=== PATIENT | male | born 1985 | race Caucasian/White ===

== ENCOUNTER 2020-01-26 08:05 | Inpatient (IN) | payer OTHER ==
[2020-01-26] MEDS ORDERED: LORazepam 2 MG/ML INJ IV STA ×2 (08:21→09:39)
[2020-01-26] MEDS ORDERED: SODIUM CHLORIDE 0.9% 1,000 ML IV STA ×2 (08:21→10:01)
[2020-01-26] MEDS: SODIUM CHLORIDE 0.9% 1,000 ML IV STA ×2 (08:29→09:58)
--- NOTE | 2020-01-26 08:30 | ED ---
Dizziness HPI - General Chief Complaint: Dizziness Stated Complaint: Tremors Time Seen by Provider: 01/26/20 08:15 Source: patient, RN notes reviewed Mode of arrival: ambulatory Limitations: no limitations - History of Present Illness Initial Comments: This is a 34-year-old male with a history of alcoholism who presents today with complaints of feeling very anxious and dizzy and lightheaded. He states he used to drink every day now he drinks a pint every 3 or 4 days he denies at this time any nausea vomiting diarrhea he does feel shaky he does feel sweaty. He has got through withdrawals before. No cough no phlegm production no rhinorrhea MD Complaint: dizziness, lightheadedness, other - Related Data Home Medications Medication Instructions Recorded Confirmed Aspirin EC [Ecotrin Low Dose] 81 mg PO DAILY 01/26/20 01/26/20 Folic Acid 1 mg PO DAILY 01/26/20 01/26/20 Multivitamins, Thera [Multivitamin 1 tab PO DAILY 01/26/20 01/26/20 (formulary)] QUEtiapine [SEROquel] 25 - 50 mg PO HS PRN 01/26/20 01/26/20 Riboflavin (Vitamin B2) [Vitamin 50 mg PO DAILY 01/26/20 01/26/20 B-2] Sertraline [Zoloft] 100 mg PO DAILY 01/26/20 01/26/20 Thiamine [Vitamin B-1] 100 mg PO DAILY 01/26/20 01/26/20 busPIRone HCl [Buspar] 10 mg PO BID 01/26/20 01/26/20 Allergies Allergy/AdvReac Type Severity Reaction Status Date / Time No Known Allergies Allergy Verified 01/26/20 09:00 Review of Systems ROS Statement: Those systems with pertinent positive or pertinent negative responses have been documented in the HPI. ROS Other: All systems not noted in ROS Statement are negative. Past Medical History Past Medical History: No Reported History History of Any Multi-Drug Resistant Organisms: None Reported Past Surgical History: No Surgical Hx Reported Past Psychological History: Anxiety, Depression Past Alcohol Use History: None Reported Past Drug Use History: None Reported General Exam - General Exam Comments Initial Comments: This is a well-developed well-nourished awake alert oriented times female he does demonstrate some mild shaking Limitations: no limitations General appearance: alert, anxious Head exam: Present: atraumatic, normocephalic, normal inspection Eye exam: Present: normal appearance, PERRL, EOMI. Absent: scleral icterus, conjunctival injection, periorbital swelling ENT exam: Present: normal exam, mucous membranes moist Neck exam: Present: normal inspection, full ROM, other. Absent: tenderness, meningismus, lymphadenopathy Respiratory exam: Present: normal lung sounds bilaterally. Absent: respiratory distress, wheezes, rales, rhonchi, stridor Cardiovascular Exam: Present: normal rhythm, tachycardia (No stridor JVD or bruits), normal heart sounds. Absent: systolic murmur, diastolic murmur, rubs, gallop, clicks GI/Abdominal exam: Present: soft, normal bowel sounds. Absent: distended, tenderness, guarding, rebound, rigid Extremities exam: Present: normal inspection, full ROM, normal capillary refill. Absent: tenderness, pedal edema, joint swelling, calf tenderness Back exam: Present: normal inspection Neurological exam: Present: alert, oriented X3, CN II-XII intact Psychiatric exam: Present: normal affect, normal mood Skin exam: Present: warm, intact, normal color, diaphoretic. Absent: rash Course Vital Signs 01/26/20 01/26/20 01/26/20 08:06 08:17 08:42 Temperature 98.9 F 100.3 F H 100.0 F H Pulse Rate 180 H 163 H 147 H Respiratory 26 H 18 14 Rate Blood Pressure 173/96 194/122 126/91 O2 Sat by Pulse 97 99 99 Oximetry 01/26/20 09:05 Temperature Pulse Rate 142 H Respiratory 16 Rate Blood Pressure 112/95 O2 Sat by Pulse 95 Oximetry - Reevaluation(s) Reevaluation #1: 01/26/20 09:54 Patient is feeling improved after initial treatment. Heart rate has improved down to the 130s. EKG Findings - EKG Results: EKG: interpreted by ERMD, sinus rhythm EKG shows: tachycardia (Sinus tachycardia rate of 164. Interval 160 QRS duration 74 QT/QTC 304/[address] configuration abnormality likely rate related) Medical Decision Making - Medical Decision Making I did discuss findings with the patient family. Also with Dr. Sneed and patient will be admitted for further evaluation and suspected alcohol withdrawal in addition to left-sided imbalances. - Lab Data Result diagrams: 01/26/20 08:34 01/26/20 08:34 Lab Results 01/26/20 01/26/20 01/26/20 Range/Units 08:34 08:34 08:34 WBC 7.6 (3.8-10.6) k/uL RBC 4.59 (4.30-5.90) m/uL Hgb 15.8 (13.0-17.5) gm/dL Hct 48.7 (39.0-53.0) % MCV 106.1 H (80.0-100.0) fL MCH 34.5 (25.0-35.0) pg MCHC 32.5 (31.0-37.0) g/dL RDW 13.1 (11.5-15.5) % Plt Count 148 L (150-450) k/uL Neutrophils % 37 % Lymphocytes % 50 % Monocytes % 7 % Eosinophils % 1 % Basophils % 1 % Neutrophils # 2.8 (1.3-7.7) k/uL Lymphocytes # 3.8 (1.0-4.8) k/uL Monocytes # 0.5 (0-1.0) k/uL Eosinophils # 0.1 (0-0.7) k/uL Basophils # 0.1 (0-0.2) k/uL Macrocytosis Moderate PT 10.7 (9.0-12.0) sec INR 1.0 (<1.2) D-Dimer 0.67 H (<0.60) mg/L FEU Sodium 137 (137-145) mmol/L Potassium 3.1 L (3.5-5.1) mmol/L Chloride 93 L (98-107) mmol/L Carbon Dioxide 12 L (22-30) mmol/L Anion Gap 32 mmol/L BUN 7 L (9-20) mg/dL Creatinine 1.35 H (0.66-1.25) mg/dL Est GFR (CKD-EPI)AfAm 78 (>60 ml/min/1.73 sqM) Est GFR (CKD-EPI)NonAf 68 (>60 ml/min/1.73 sqM) Glucose 294 H (74-99) mg/dL Calcium 9.7 (8.4-10.2) mg/dL Magnesium 1.1 L (1.6-2.3) mg/dL Total Bilirubin 2.0 H (0.2-1.3) mg/dL AST 144 H (17-59) U/L ALT 61 H (4-49) U/L Alkaline Phosphatase 67 (38-126) U/L Creatine Kinase 140 (55-170) U/L Troponin I (0.000-0.034) ng/mL NT-Pro-B Natriuret Pep pg/mL Total Protein 8.8 H (6.3-8.2) g/dL Albumin 5.5 H (3.5-5.0) g/dL TSH 2.760 (0.465-4.680) mIU/L Serum Alcohol <10 mg/dL 01/26/20 01/26/20 Range/Units 08:34 08:34 WBC (3.8-10.6) k/uL RBC (4.30-5.90) m/uL Hgb (13.0-17.5) gm/dL Hct (39.0-53.0) % MCV (80.0-100.0) fL MCH (25.0-35.0) pg MCHC (31.0-37.0) g/dL RDW (11.5-15.5) % Plt Count (150-450) k/uL Neutrophils % % Lymphocytes % % Monocytes % % Eosinophils % % Basophils % % Neutrophils # (1.3-7.7) k/uL Lymphocytes # (1.0-4.8) k/uL Monocytes # (0-1.0) k/uL Eosinophils # (0-0.7) k/uL Basophils # (0-0.2) k/uL Macrocytosis PT (9.0-12.0) sec INR (<1.2) D-Dimer (<0.60) mg/L FEU Sodium (137-145) mmol/L Potassium (3.5-5.1) mmol/L Chloride (98-107) mmol/L Carbon Dioxide (22-30) mmol/L Anion Gap mmol/L BUN (9-20) mg/dL Creatinine (0.66-1.25) mg/dL Est GFR (CKD-EPI)AfAm (>60 ml/min/1.73 sqM) Est GFR (CKD-EPI)NonAf (>60 ml/min/1.73 sqM) Glucose (74-99) mg/dL Calcium (8.4-10.2) mg/dL Magnesium (1.6-2.3) mg/dL Total Bilirubin (0.2-1.3) mg/dL AST (17-59) U/L ALT (4-49) U/L Alkaline Phosphatase (38-126) U/L Creatine Kinase (55-170) U/L Troponin I <0.012 (0.000-0.034) ng/mL NT-Pro-B Natriuret Pep 359 pg/mL Total Protein (6.3-8.2) g/dL Albumin (3.5-5.0) g/dL TSH (0.465-4.680) mIU/L Serum Alcohol mg/dL - Radiology Data Radiology results: report reviewed (I did review the imaging and report no acute findings.), image reviewed Disposition Clinical Impression: Alcohol withdrawal, Hypokalemia, Hypomagnesemia, Dehydration, Hyperglycemia Disposition: ADMITTED IP TO THIS [facility] Condition: Fair Referrals: None,Stated [Primary Care Provider] - 1-2 days
[2020-01-26 08:46] LABS: Basophils # (A) 0.1 k/uL (0-0.2); Basophils % (A) 1 %; Eosinophils # (A) 0.1 k/uL (0-0.7); Eosinophils % (A) 1 %; HCT 48.7 % (39.0-53.0); HGB 15.8 gm/dL (13.0-17.5); Lymphocytes # (A) 3.8 k/uL (1.0-4.8); Lymphocytes % (A) 50 %; MCH 34.5 pg (25.0-35.0); MCHC 32.5 g/dL (31.0-37.0); MCV 106.1 fL (80.0-100.0); Macrocytosis Moderate; Mean Platelet Volume 9.2; Monocytes # (A) 0.5 k/uL (0-1.0); Monocytes % (A) 7 %; Neutrophils # (A) 2.8 k/uL (1.3-7.7); Neutrophils % (A) 37 %; Platelet Count 148 k/uL (150-450); RBC 4.59 m/uL (4.30-5.90); RDW 13.1 % (11.5-15.5); WBC 7.6 k/uL (3.8-10.6)
--- NOTE | 2020-01-26 08:56 | XR ---
EXAMINATION TYPE: XR chest 2V DATE OF EXAM: 01/26/2020 COMPARISON: NONE HISTORY: Elevated heart rate. Anxiety. TECHNIQUE: Frontal and lateral views of the chest are obtained. FINDINGS: Low lung volumes. There is no suspicious focal air space opacity, pleural effusion, or pneu mothorax seen. The cardiac silhouette size is within normal limits. The osseous structures are int act. Overlying EKG leads. IMPRESSION: No acute cardiopulmonary process.
[2020-01-26 08:59] LABS: Prothrombin Time 10.7 sec (9.0-12.0)
[2020-01-26 09:00] LABS: African American GFR (CKD) 78 (>60 ml/min/1.73 sqM); Albumin 5.5 g/dL (3.5-5.0); Alcohol <10 mg/dL; Alkaline Phosphatase 67 U/L (38-126); Anion Gap 32 mmol/L; Blood Urea Nitrogen 7 mg/dL (9-20); Calcium 9.7 mg/dL (8.4-10.2); Carbon Dioxide 12 mmol/L (22-30); Chloride 93 mmol/L (98-107); Creatine Kinase 140 U/L (55-170); Glucose 294 mg/dL (74-99); Magnesium 1.1 mg/dL (1.6-2.3); Non-African American GFR(CKD) 68 (>60 ml/min/1.73 sqM); Potassium 3.1 mmol/L (3.5-5.1); Sodium 137 mmol/L (137-145); Total Protein 8.8 g/dL (6.3-8.2)
[2020-01-26 09:05] LABS: AST 144 U/L (17-59)
[2020-01-26 09:07] LABS: ALT 61 U/L (4-49)
[2020-01-26 09:09] LABS: D-Dimer 0.67 mg/L FEU (<0.60)
[2020-01-26] MEDS ORDERED: IBUPROFEN 400 MG TAB PO PRN (09:57)
[2020-01-26] MEDS ORDERED: NALOXONE 0.4 MG/ML 1 ML VIAL IV PRN (09:57)
[2020-01-26] MEDS: MAGNESIUM SULFATE-D5W PMX 1 GM in DEXTROSE/WATER 1 100ML.BAG IVPB SCH ×2 (09:58→12:13)
[2020-01-26] MEDS ORDERED: THIAMINE 100 MG/ML 2 ML VIAL IM STA (09:59)
[2020-01-26] MEDS ORDERED: LORazepam 2 MG/ML INJ IV PRN ×3 (09:59)
[2020-01-26] MEDS ORDERED: SODIUM CHLORIDE 0.9% 500 ML 500 ML IV ONE (10:22)
[2020-01-26] MEDS ORDERED: 0.9% NACL WITH KCL 20 MEQ/L 1,000 ML IV SCH (10:30)
[2020-01-26 10:34] LABS: Amphetamine Screen,Urine Not Detected (NotDetected); Barbiturate Screen,Urine Not Detected (NotDetected); Benzodiazepines Screen,Urine Detected (NotDetected); Cocaine Screen,Urine Not Detected (NotDetected); Methadone Screen, Urine Not Detected (NotDetected); Opiate Screen,Urine Not Detected (NotDetected); Oxycodone Screen, Urine Not Detected (NotDetected); Phencyclidine Screen,Urine Not Detected (NotDetected); Tricyclic Antidepressant,Urine Detected (NotDetected); Urn Cannabinoid Scrn Not Detected (NotDetected)
[2020-01-26] MEDS: diazePAM 5 MG TAB PO SCH ×3 (10:36→23:16)
[2020-01-26] MEDS: PANTOPRAZOLE 40 MG TABLET PO SCH (10:36)
--- NOTE | 2020-01-26 13:28 | P.HPIM ---
History of Present Illness H&P Date: 01/26/20 Chief Complaint: Worsening anxiety This is a 34-year-old male with past medical history significant for underlying depression, anxiety, and alcohol abuse who presented to the emergency room with worsening anxiety and shakiness. Patient said that he usually drinks half pint of vodka every every 3 days. He used to drink daily but has been cutting down for the past several months. He noted this morning that he was having more shakiness and appeared very anxious sister to go to the emergency room. Patient was evaluated in the ER and was found to have significant hypomagnesemia and hypokalemia. He was having withdrawal symptoms and was treated with IV Ativan. He is currently admitted to the hospital for further management. Patient told nursing staff prior to my evaluation that he wished he could be by now. He told the nurse that he would prefer to go to sleep and not to wake up. Upon my evaluation, patient denies any suicidal thoughts or ideation. He believes that he is anxious. He denies any visual or audible hallucination. Review of Systems Review of system: 14 points review of systems were obtained and were negative except to what were mentioned in the HPI. Past Medical History Past Medical History: No Reported History History of Any Multi-Drug Resistant Organisms: None Reported Past Surgical History: Adenoidectomy Past Anesthesia/Blood Transfusion Reactions: No Reported Reaction Past Psychological History: Anxiety, Depression Smoking Status: Never smoker Past Alcohol Use History: Abuse, Daily, Heavy Past Drug Use History: None Reported - Past Family History Father Family Medical History: Cancer Additional Family Medical History / Comment(s): from lung cancer Mother Family Medical History: Thyroid Disorder Additional Family Medical History / Comment(s): Autoimmune liver cirrhosis Medications and Allergies Home Medications Medication Instructions Recorded Confirmed Type Aspirin EC [Ecotrin Low Dose] 81 mg PO DAILY 01/26/20 01/26/20 History Multivitamins, Thera [Multivitamin 1 tab PO DAILY 01/26/20 01/26/20 History (formulary)] QUEtiapine [SEROquel] 25 - 50 mg PO HS PRN 01/26/20 01/26/20 History RX: Folic Acid 1 mg PO DAILY 01/26/20 01/26/20 History Riboflavin (Vitamin B2) [Vitamin 50 mg PO DAILY 01/26/20 01/26/20 History B-2] Sertraline [Zoloft] 100 mg PO DAILY 01/26/20 01/26/20 History Thiamine [Vitamin B-1] 100 mg PO DAILY 01/26/20 01/26/20 History busPIRone HCl [Buspar] 10 mg PO BID 01/26/20 01/26/20 History Allergies Allergy/AdvReac Type Severity Reaction Status Date / Time No Known Allergies Allergy Verified 01/26/20 09:00 Physical Exam Vitals: Vital Signs Temp Pulse Pulse Resp BP BP Pulse Ox 01/26/20 11:10 98.8 F 114 H 16 110/67 97 01/26/20 10:47 99.1 F 115 H 14 104/78 96 01/26/20 10:02 99.1 F 129 H 14 113/79 95 01/26/20 09:05 142 H 16 112/95 95 01/26/20 08:42 100.0 F H 147 H 14 126/91 99 01/26/20 08:17 100.3 F H 163 H 18 194/122 99 01/26/20 08:06 98.9 F 180 H 26 H 173/96 97 Intake and Output 01/25/20 01/26/20 01/26/20 22:59 06:59 14:59 Other: Weight 86.183 kg General: The patient is awake and alert, in no distress Eye: there is normal conjunctiva bilaterally. Neck: The neck is supple, there is no JVD. Cardiovascular: Normal S1-S2, no S3-S4, no murmurs. Respiratory: Lungs clear to auscultation bilaterally Gastrointestinal: Abdomen is soft, nontender Musculoskeletal: There is no pedal edema. Neurological:. Speech is normal. Skin: Skin is warm and dry Results CBC & Chem 7: 01/26/20 08:34 01/26/20 08:34 Labs: Abnormal Lab Results - Last 24 Hours (Table) 01/26/20 01/26/20 01/26/20 Range/Units 08:34 08:34 08:34 MCV 106.1 H (80.0-100.0) fL Plt Count 148 L (150-450) k/uL D-Dimer 0.67 H (<0.60) mg/L FEU Potassium (3.5-5.1) mmol/L Chloride (98-107) mmol/L Carbon Dioxide (22-30) mmol/L BUN (9-20) mg/dL Creatinine (0.66-1.25) mg/dL Glucose (74-99) mg/dL Magnesium (1.6-2.3) mg/dL Total Bilirubin (0.2-1.3) mg/dL AST (17-59) U/L ALT (4-49) U/L Total Protein (6.3-8.2) g/dL Albumin (3.5-5.0) g/dL U Tricyclic Antidepress Detected H (NotDetected) U Benzodiazepines Scrn Detected H (NotDetected) 01/26/20 Range/Units 08:34 MCV (80.0-100.0) fL Plt Count (150-450) k/uL D-Dimer (<0.60) mg/L FEU Potassium 3.1 L (3.5-5.1) mmol/L Chloride 93 L (98-107) mmol/L Carbon Dioxide 12 L (22-30) mmol/L BUN 7 L (9-20) mg/dL Creatinine 1.35 H (0.66-1.25) mg/dL Glucose 294 H (74-99) mg/dL Magnesium 1.1 L (1.6-2.3) mg/dL Total Bilirubin 2.0 H (0.2-1.3) mg/dL AST 144 H (17-59) U/L ALT 61 H (4-49) U/L Total Protein 8.8 H (6.3-8.2) g/dL Albumin 5.5 H (3.5-5.0) g/dL U Tricyclic Antidepress (NotDetected) U Benzodiazepines Scrn (NotDetected) Thrombosis Risk Factor Assmnt - Choose All That Apply Any of the Below Risk Factors Present?: No Other Risk Factors: No Other congenital or acquired thrombophilia - If yes, enter type in comment: No Thrombosis Risk Factor Assessment Level: Very Low Risk Assessment and Plan Assessment: 1. Alcohol withdrawal, I started the patient on Valium 10 mg 3 times a day. Continue IV Ativan as needed per [facility] protocol. Multivitamins and thiamine. 2. Hypokalemia and hypomagnesemia, replacement ordered. Repeat lab work in the morning. 3. Dehydration, with sinus tachycardia on presentation: Received 1.5 L of home a saline as a bolus in the ER. Continue IV fluids 4. Underlying depression/anxiety with suicidal thoughts on presentation: Continue suicide precautions. To that at bedside. Consult psychiatry for further evaluation. 5. DVT prophylaxis with subcu heparin 6. GI prophylaxis with Protonix The patient is admitted with an anticipated greater than 2 midnight stay for evaluation of the medical problems noted above Discussed with: Patient and nursing staff Anticipated discharge date: To be determined based on clinical course Anticipated discharge place: home A total of 45 minutes was spent on the care of this complex patient more than 50% of the time was spent in counseling and care coordination.
[2020-01-26] MEDS: 0.9% NACL WITH KCL 20 MEQ/L 1,000 ML with MVI, ADULT NO.4 WITH VIT K 10 ML, THIAMINE 10... IV SCH ×4 (14:23)
--- NOTE | 2020-01-26 14:55 | P.CN ---
Psychiatric Consult - . Consult date: 01/26/20 Consult:: IDENTIFYING DATA: This patient is a 34-year-old male with significant history of alcohol use who presented to the emergency Department with anxiety and shakiness. HISTORY OF PRESENT ILLNESS: Patient's mother Ashlyn is present in the room. Patient is agreeable to have her present during the psychiatric evaluation. The patient presented to the hospital on 01/26/2020. Patient reports that he was about to depart on a trip to [place] to unwind as a "singles trip" as his divorce is being finalized over the next 30 days. He expresses that he was having increased anxiety and shakiness last night. He states that he has taken some Seroquel to help him sleep and was able to sleep. He reports that before he could go to the airport his anxiety was increasingly worse and his hands were locking up. He was then brought to the emergency department by his sister. Patient reports that he has always had problems with anxiety and worry. He states that this has been occurring since 9 years ago after his father . In regards to mood, patient expresses that he has been feeling "a little down" over the past few months. He endorses symptoms of depression including lack of appetite, anhedonia, isolation, and low mood. He reports passive thoughts of but denies any active suicidal or homicidal ideation, intention, and/or plan. He denies any prior attempts at suicide. 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 He was discharged from rehab on November 20 and relapsed into alcohol use after. He reports his last drink was 4 days ago. Along with alcohol, he also engages in significant tobacco use using approximately a can per day of chew. He does not endorse any significant history of bipolar disorder. He denies any history of auditory hallucinations. He reports having one episode of visual hallucination in the past while he was intoxicated. He denies any history of illicit drug use. He reports experimenting with marijuana but denies any recent or current use. PAST PSYCHIATRIC HISTORY: Patient has a a history of anxiety, depression, and alcohol use disorder. And he recalls being previously prescribed Lexapro, Zoloft, BuSpar, and Seroquel. Patient denies any previous psychiatric hospitalizations. He is currently open to outpatient therapy services through [facility]. Patient denies any history of suicide attempts in the past. PAST MEDICAL HISTORY: No reported past medical history. ALLERGIES: as per EMR. CHEMICAL DEPENDENCY HISTORY: as per HPI. FAMILY PSYCHIATRIC/SUBSTANCE USE HISTORY: 2 aunts with depression and anxiety. SOCIAL HISTORY: Patient was born in [place]. Patient lives in [place]. He is currently staying with 2 of his sisters. 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 Currently in the process of divorce. MENTAL STATUS EXAM: General Appearance: Patient appears to be stated age is alert, pleasant, and cooperative. Patient appears to have fair hygiene and grooming wearing hospital gown with fair eye contact. Behavior: Patient is calmly lying in bed without any agitated behavior. Mild psychomotor retardation. Poor eye contact. Speech: Patient's speech is fluent and nonpressured. Mood/Affect: Patient reports their mood is "kind of low", affect is sad and blunted Suicidality/Homicidality: Patient denies having any suicidal or homicidal ideation intent or plan. Perceptions: Patient denies any visual hallucinations and denies any auditory hallucinations Though content/process: There is no evidence of any delusional thought content and thought process is linear and goal-directed. Memory and concentration: AOX3, grossly intact for the purposes of this session. Can spell "WORLD" backwards Judgment and insight: Fair IMPRESSIONS: Major depressive disorder, recurrent Generalized anxiety disorder Alcohol use disorder PLAN: -At this time patient DOES NOT meet criteria for inpatient psychiatric admission. -Would recommend the following medication changes/additions: Discontinue Seroquel. Start Remeron 15 mg by mouth at bedtime for depression/lack of appetite/anxiety -Recommend setting up patient with outpatient psychiatry follow-up -Patient has elevated liver enzymes. Consider the use of naltrexone if liver enzymes returned to normal. -Discontinue 1:1 -Psychiatry will sign off at this point, please contact with any questions. 01/26/20 14:43
[2020-01-26 17:05] LABS: Hemoglobin A1C 4.7 % (4.0-6.0)
[2020-01-26] MEDS: THIAMINE 100 MG TAB PO SCH (17:26)
[2020-01-26] MEDS: HEPARIN SODIUM,PORCINE 5,000 UNIT/ML 1 ML VIAL SQ SCH (20:09)
[2020-01-26] MEDS: busPIRone HCl 10 MG TAB PO SCH (20:18)
[2020-01-26] MEDS: MIRTAZAPINE 15 MG TAB PO SCH (20:18)
[2020-01-26] MEDS ORDERED: QUEtiapine 25 MG TAB PO PRN (21:00)
[2020-01-27] MEDS: 0.9% NACL WITH KCL 20 MEQ/L 1,000 ML with MVI, ADULT NO.4 WITH VIT K 10 ML, THIAMINE 10... IV SCH ×4 (06:37)
[2020-01-27] MEDS: PANTOPRAZOLE 40 MG TABLET PO SCH (06:38)
[2020-01-27] MEDS: THIAMINE 100 MG TAB PO SCH ×2 (06:38→16:37)
[2020-01-27 07:22] LABS: African American GFR (CKD) >90 (>60 ml/min/1.73 sqM); Anion Gap 6 mmol/L; Blood Urea Nitrogen 8 mg/dL (9-20); Calcium 8.5 mg/dL (8.4-10.2); Carbon Dioxide 27 mmol/L (22-30); Chloride 107 mmol/L (98-107); Glucose 83 mg/dL (74-99); Magnesium 1.6 mg/dL (1.6-2.3); Non-African American GFR(CKD) >90 (>60 ml/min/1.73 sqM); Potassium 3.3 mmol/L (3.5-5.1); Sodium 140 mmol/L (137-145)
[2020-01-27] MEDS ORDERED: POTASSIUM CHLORIDE 20 MEQ in WATER FOR INJECTION 1 100ML.BAG IVPB STA (07:55)
[2020-01-27] MEDS ORDERED: POTASSIUM CHLORIDE ER 20 MEQ TAB.ER PO STA (07:55)
[2020-01-27] MEDS: busPIRone HCl 10 MG TAB PO SCH ×2 (08:22→19:45)
[2020-01-27] MEDS: diazePAM 5 MG TAB PO SCH ×3 (08:22→19:45)
[2020-01-27] MEDS: SERTRALINE 100 MG TAB PO SCH (08:22)
[2020-01-27] MEDS: ASPIRIN 81 MG PO SCH (08:22)
[2020-01-27] MEDS: HEPARIN SODIUM,PORCINE 5,000 UNIT/ML 1 ML VIAL SQ SCH ×2 (08:23→19:45)
[2020-01-27] MEDS: NICOTINE 14MG/24HR PATCH TRANSDERM SCH (08:23)
[2020-01-27] MEDS: MAGNESIUM SULFATE-D5W PMX 1 GM in DEXTROSE/WATER 1 100ML.BAG IVPB SCH ×2 (08:29→10:02)
[2020-01-27] MEDS ORDERED: NALTREXONE HCL 50 MG TAB PO SCH (09:00)
[2020-01-27] MEDS ORDERED: SODIUM CHLORIDE 0.9% 1,000 ML IV ONE (10:14)
[2020-01-27 11:50] LABS: Glucose,Whole Blood 92 mg/dL (75-99)
--- NOTE | 2020-01-27 12:44 | P.PN ---
Subjective Progress Note Date: 01/27/20 Patient is doing better today. He does not have any complaints this morning. His magnesium and potassium level remained on the lower range. His tachycardia improved at rest that he is still tachycardic when he get up and ambulate. He did not require any IV Ativan overnight Objective - Vital Signs Vital signs: Vital Signs Temp 98.2 F 01/27/20 12:00 Pulse 87 01/27/20 12:00 Resp 18 01/27/20 12:00 BP 140/98 01/27/20 12:00 Pulse Ox 99 01/27/20 12:00 Intake & Output 01/26/20 01/27/20 01/27/20 18:59 06:59 18:59 Intake Total 100 360 Balance 100 360 Weight 86.183 kg 84 kg Intake: Oral 100 360 Other: Voiding Method Toilet Toilet # Voids 0 1 3 # Bowel Movements 0 1 - Exam General: The patient is awake and alert, in no distress Eye: there is normal conjunctiva bilaterally. Neck: The neck is supple, there is no JVD. Cardiovascular: Normal S1-S2, no S3-S4, no murmurs. Respiratory: Lungs clear to auscultation bilaterally Gastrointestinal: Abdomen is soft, nontender Musculoskeletal: There is no pedal edema. Neurological:. Speech is normal. Skin: Skin is warm and dry - Labs CBC & Chem 7: 01/26/20 08:34 01/27/20 06:34 Labs: Abnormal Lab Results - Last 24 Hours (Table) 01/27/20 Range/Units 06:34 Potassium 3.3 L (3.5-5.1) mmol/L BUN 8 L (9-20) mg/dL Microbiology - Last 24 Hours (Table) 01/26/20 08:34 Blood Culture - Preliminary Blood No Growth after 24 hours Assessment and Plan Assessment: This is a 34-year-old male with past medical history noted below who presented to the emergency room with worsening anxiety and shakiness. Patient was evaluated and admitted to the hospital for further management of his medical problems noted below. 1. Alcohol withdrawal, I started the patient on Valium 10 mg 3 times a day and we will decrease the dose to 5 mg 3 times a day today Continue IV Ativan as needed per [facility] protocol. Multivitamins and thiamine. 2. Hypokalemia and hypomagnesemia, replacement ordered. Repeat lab work in the morning. 3. Dehydration, with sinus tachycardia on presentation: Received 1.5 L of home a saline as a bolus in the ER. We will give him additional 1 L bolus today given persistent tachycardia with ambulation 4. Underlying depression/anxiety with suicidal thoughts on presentation: Seen and evaluated by psychiatry. Bedside sitter discontinued. Seroquel was discontinued. I would clarify with our psychiatrist if he wanted patient to be on BuSpar, Zoloft, and Remeron altogether. 5. Alcohol abuse, counseled extensively to quit. 6. GI prophylaxis with Protonix. DVT prophylaxis with subcu heparin Repeat lab work in the morning. Anticipate discharge home tomorrow.
--- NOTE | 2020-01-27 13:56 | P.PN ---
Progress Note - Text Progress Note Date: 01/27/20 IDENTIFYING DATA: This patient is a 34-year-old male with significant history of alcohol use who presented to the emergency Department with anxiety and shakiness. SUBJECTIVE: Patient was that he is feeling "better today." He is not endorsing any suicidal or homicidal ideation, intention, and/or plan. He is not reporting any significant issues with anxiety. He denies any panic episodes or increased shakiness. He is not endorsing any symptoms of alcohol withdrawal at this time. Denies any headache, tremors, or any auditory or visual hallucinations. He reports no side effects of his medications. Denies any issues with sleep or appetite today. OBJECTIVE: MENTAL STATUS EXAM: General Appearance: Patient appears to be stated age is alert, pleasant, and cooperative. Patient appears to have fair hygiene and grooming wearing hospital gown with fair eye contact. Behavior: Patient is calmly lying in bed without any agitated behavior. Speech: Patient's speech is fluent and nonpressured. Mood/Affect: Patient reports their mood is "okay", affect is congruent and euthymic Suicidality/Homicidality: Patient denies having any suicidal or homicidal ideation intent or plan. Perceptions: Patient denies any visual hallucinations and denies any auditory hallucinations Though content/process: There is no evidence of any delusional thought content and thought process is linear and goal-directed. Memory and concentration: AOX3, grossly intact for the purposes of this session. Can spell "WORLD" backwards Judgment and insight: Fair IMPRESSIONS: Major depressive disorder, recurrent Generalized anxiety disorder Alcohol use disorder PLAN: -At this time patient DOES NOT meet criteria for inpatient psychiatric admission. -Delirium precautions recommended with patient including - avoiding use of narcotics and [place] sedatives, limit anticholinergic medications when possible, frequent re-orientation, minimize use of restraints, open window shades during the day and close them at night -Would recommend the following medication changes/additions: Continue Remeron 15 mg by mouth at bedtime for insomnia/anxiety/depression. No other medication changes at this time. -Recommend outpatient psychotherapy and psychiatry follow-up. -Psychiatry will sign off at this point, please contact with any questions.
[2020-01-27 14:03] VITALS: BMI 28.1
[2020-01-27] MEDS: MIRTAZAPINE 15 MG TAB PO SCH (19:45)
[2020-01-28] MEDS: PANTOPRAZOLE 40 MG TABLET PO SCH (06:14)
[2020-01-28] MEDS: THIAMINE 100 MG TAB PO SCH (06:14)
[2020-01-28 07:56] VITALS: BP 154/105; PULSE 93; RESP 13; TEMP 98.4
[2020-01-28] MEDS: HEPARIN SODIUM,PORCINE 5,000 UNIT/ML 1 ML VIAL SQ SCH (09:15)
[2020-01-28] MEDS: NICOTINE 14MG/24HR PATCH TRANSDERM SCH (09:15)
[2020-01-28] MEDS: SERTRALINE 100 MG TAB PO SCH (09:16)
[2020-01-28] MEDS: ASPIRIN 81 MG PO SCH (09:16)
[2020-01-28] MEDS: busPIRone HCl 10 MG TAB PO SCH (09:16)
[2020-01-28 09:27] LABS: ALT 79 U/L (4-49); AST 96 U/L (17-59); African American GFR (CKD) >90 (>60 ml/min/1.73 sqM); Albumin 4.5 g/dL (3.5-5.0); Alkaline Phosphatase 57 U/L (38-126); Anion Gap 6 mmol/L; Blood Urea Nitrogen 10 mg/dL (9-20); Calcium 9.3 mg/dL (8.4-10.2); Carbon Dioxide 27 mmol/L (22-30); Chloride 104 mmol/L (98-107); Glucose 72 mg/dL (74-99); Magnesium 1.7 mg/dL (1.6-2.3); Non-African American GFR(CKD) >90 (>60 ml/min/1.73 sqM); Potassium 3.8 mmol/L (3.5-5.1); Sodium 137 mmol/L (137-145); Total Bilirubin 0.8 mg/dL (0.2-1.3); Total Protein 7.3 g/dL (6.3-8.2)
--- NOTE | 2020-01-28 09:39 | P.DS ---
Providers Date of admission: 01/26/20 09:57 Expected date of discharge: 01/28/20 Attending physician: Donnell Sneed Consults: 01/26/20 13:02 Consult Physician Urgent Consulting Provider: Hamilton Tinoco Consult Reason/Comments: depression/suicide precautions Do you want consulting provider notified?: Yes Primary care physician: Stated None Hospital Course: This is a 34-year-old male with past medical history noted below who presented to the emergency room with worsening anxiety and shakiness. Patient was evaluated and admitted to the hospital for further management of his medical problems noted below. 1. Alcohol withdrawal, treated with oral Valium and as needed CIWA protocol. Multivitamins and thiamine. 2. Hypokalemia and hypomagnesemia, replaced 3. Dehydration, improved with aggressive IV fluid hydration 4. Underlying depression/anxiety with suicidal thoughts on presentation: Seen and evaluated by psychiatry. Bedside sitter discontinued. Seroquel was discontinued. Cleared by psychiatry for discharge home. Follow-up with counseling outpatient. Remeron added to his regimen. 5. Alcohol abuse, counseled extensively to quit. Patient will be discharged home in a stable condition. For further details about this hospitalization please refer to the electronic chart. Time spent on discharge > 30 minutes including counseling and coordination of Patient Condition at Discharge: Fair Plan - Discharge Summary Discharge Rx Participant: No New Discharge Prescriptions: New Nicotine 14Mg/24Hr Patch [Habitrol] 1 patch TRANSDERM DAILY #30 patch Magnesium Oxide [Mag-Ox] 400 mg PO DAILY #30 tablet Mirtazapine [Remeron] 15 mg PO HS #30 tab Continue Multivitamins, Thera [Multivitamin (formulary)] 1 tab PO DAILY Folic Acid 1 mg PO DAILY Aspirin EC [Ecotrin Low Dose] 81 mg PO DAILY busPIRone HCl [Buspar] 10 mg PO BID Thiamine [Vitamin B-1] 100 mg PO DAILY Sertraline [Zoloft] 100 mg PO DAILY Discontinued Riboflavin (Vitamin B2) [Vitamin B-2] 50 mg PO DAILY QUEtiapine [SEROquel] 25 - 50 mg PO HS PRN PRN Reason: Insomnia Discharge Medication List Aspirin EC [Ecotrin Low Dose] 81 mg PO DAILY 01/26/20 [History] Folic Acid 1 mg PO DAILY 01/26/20 [History] Multivitamins, Thera [Multivitamin (formulary)] 1 tab PO DAILY 01/26/20 [History] Sertraline [Zoloft] 100 mg PO DAILY 01/26/20 [History] Thiamine [Vitamin B-1] 100 mg PO DAILY 01/26/20 [History] busPIRone HCl [Buspar] 10 mg PO BID 01/26/20 [History] Magnesium Oxide [Mag-Ox] 400 mg PO DAILY #30 tablet 01/28/20 [Rx] Mirtazapine [Remeron] 15 mg PO HS #30 tab 01/28/20 [Rx] Nicotine 14Mg/24Hr Patch [Habitrol] 1 patch TRANSDERM DAILY #30 patch 01/28/20 [Rx] Follow up Appointment(s)/Referral(s): None,Stated [Primary Care Provider] - 1-2 days Discharge Disposition: HOME SELF-CARE
[2020-01-28 10:05] LABS: Basophils % (A) 0 %; Eosinophils # (A) 0.1 k/uL (0-0.7); Eosinophils % (A) 1 %; HCT 42.3 % (39.0-53.0); HGB 13.9 gm/dL (13.0-17.5); Lymphocytes # (A) 0.8 k/uL (1.0-4.8); Lymphocytes % (A) 19 %; MCH 33.9 pg (25.0-35.0); MCHC 32.8 g/dL (31.0-37.0); MCV 103.4 fL (80.0-100.0); Macrocytosis Slight; Mean Platelet Volume 8.8; Monocytes # (A) 0.5 k/uL (0-1.0); Monocytes % (A) 11 %; Neutrophils # (A) 2.8 k/uL (1.3-7.7); Neutrophils % (A) 66 %; Platelet Count 109 k/uL (150-450); RBC 4.09 m/uL (4.30-5.90); RDW 13.4 % (11.5-15.5); WBC 4.2 k/uL (3.8-10.6)
== END 2020-01-28 11:29 | disposition home or self-care (01) | DRG 897 ==
LOC: EC 08:05 → 3SCARD 09:57
PROVIDERS: ADMIT Internal Medicine; ATTEND Internal Medicine
DX: F10.239 Alcohol dependence with withdrawal, unspecified (principal); R45.851 Suicidal ideations; F33.9 Major depressive disorder, recurrent, unspecified; F41.1 Generalized anxiety disorder; E87.6 Hypokalemia; E83.42 Hypomagnesemia; E86.0 Dehydration; R73.9 Hyperglycemia, unspecified; R00.1 Bradycardia, unspecified; Z79.82 Long term (current) use of aspirin; Z79.899 Other long term (current) drug therapy; Z80.1 Family history of malignant neoplasm of trachea, bronchus and lung; Z83.79 Family history of other diseases of the digestive system; Z83.49 Family history of other endocrine, nutritional and metabolic diseases
CPT/HCPCS: 36415; 71046; 80048; 80053; 80306; 80320; 82009; 82550; 83036; 83735; 83880; 84443; 84484; 85025; 85379; 85610; 87040; 93005; 96361; 96365; 96372; 96375; 96376; 99285

== ENCOUNTER 2020-04-14 10:09 | Inpatient (IN) | payer OTHER ==
[2020-04-14] MEDS ORDERED: SODIUM CHLORIDE 0.9% 1,000 ML IV STA ×2 (10:23)
[2020-04-14] MEDS ORDERED: THIAMINE 100 MG/ML 2 ML VIAL IM STA ×2 (10:23→10:24)
[2020-04-14] MEDS ORDERED: ONDANSETRON 4 MG/2 ML VIAL IVP STA (10:24)
[2020-04-14] MEDS ORDERED: LORazepam 2 MG/ML INJ IV PRN ×3 (10:24)
--- NOTE | 2020-04-14 10:29 | ED ---
Alcohol HPI - General Chief Complaint: Alcohol Stated Complaint: Alcohol withdrawal Time Seen by Provider: 04/14/20 10:16 Source: patient, RN notes reviewed, old records reviewed Mode of arrival: ambulatory Limitations: no limitations - History of Present Illness Initial Comments: Patient is a 35-year-old male presents emergency room today with complaints of alcohol withdrawal symptoms of nausea and vomiting and shakiness and high heart rate. Patient reports that he drinks approximately a pint a day and his last drink was on Saturday. Patient reports that he has been having a rough holiday season and going through divorce with his at this time as well. He states that he is not having any suicidal thoughts. He is here at the ER to manage his symptoms draw and is concerned for dehydration without much nausea and vomiting is had. Patient states that he has no fevers or chills denies chest pain. - Related Data Home Medications Medication Instructions Recorded Confirmed Aspirin EC [Ecotrin Low Dose] 81 mg PO DAILY 01/26/20 01/26/20 Folic Acid 1 mg PO DAILY 01/26/20 01/26/20 Multivitamins, Thera [Multivitamin 1 tab PO DAILY 01/26/20 01/26/20 (formulary)] Sertraline [Zoloft] 100 mg PO DAILY 01/26/20 01/26/20 Thiamine [Vitamin B-1] 100 mg PO DAILY 01/26/20 01/26/20 busPIRone HCl [Buspar] 10 mg PO BID 01/26/20 01/26/20 Previous Rx's Medication Instructions Recorded Magnesium Oxide [Mag-Ox] 400 mg PO DAILY #30 tablet 01/28/20 Mirtazapine [Remeron] 15 mg PO HS #30 tab 01/28/20 Nicotine 14Mg/24Hr Patch [Habitrol] 1 patch TRANSDERM DAILY #30 patch 01/28/20 Allergies Allergy/AdvReac Type Severity Reaction Status Date / Time No Known Allergies Allergy Verified 04/14/20 10:14 Review of Systems ROS Statement: Those systems with pertinent positive or pertinent negative responses have been documented in the HPI. ROS Other: All systems not noted in ROS Statement are negative. Past Medical History Past Medical History: No Reported History History of Any Multi-Drug Resistant Organisms: None Reported Past Surgical History: Adenoidectomy Past Anesthesia/Blood Transfusion Reactions: No Reported Reaction Past Psychological History: Anxiety, Depression Smoking Status: Never smoker Past Alcohol Use History: Abuse, Daily, Heavy Past Drug Use History: None Reported - Past Family History Father Family Medical History: Cancer Additional Family Medical History / Comment(s): from lung cancer Mother Family Medical History: Thyroid Disorder Additional Family Medical History / Comment(s): Autoimmune liver cirrhosis General Exam - General Exam Comments Initial Comments: Alert and oriented 35-year-old male. No acute distress. Limitations: no limitations General appearance: alert, in no apparent distress Head exam: Present: atraumatic, normocephalic, normal inspection Eye exam: Present: normal appearance, PERRL, EOMI. Absent: scleral icterus, conjunctival injection, periorbital swelling ENT exam: Present: normal exam, mucous membranes moist Neck exam: Present: normal inspection. Absent: tenderness, meningismus, lymphadenopathy Respiratory exam: Present: normal lung sounds bilaterally. Absent: respiratory distress, wheezes, rales, rhonchi, stridor Cardiovascular Exam: Present: normal rhythm, tachycardia, normal heart sounds. Absent: regular rate, systolic murmur, diastolic murmur, rubs, gallop, clicks GI/Abdominal exam: Present: soft, normal bowel sounds. Absent: distended, tenderness, guarding, rebound, rigid Extremities exam: Present: normal inspection, full ROM, normal capillary refill. Absent: tenderness, pedal edema, joint swelling, calf tenderness Back exam: Present: normal inspection Neurological exam: Present: alert, oriented X3, CN II-XII intact. Absent: altered Psychiatric exam: Present: normal affect, normal mood Skin exam: Present: warm, dry, intact, normal color. Absent: rash Course Vital Signs 04/14/20 04/14/20 10:12 11:24 Temperature 98.2 F Pulse Rate 150 H 124 H Respiratory 16 18 Rate Blood Pressure 128/87 137/99 O2 Sat by Pulse 96 96 Oximetry Medical Decision Making - Medical Decision Making 35-year-old male presents emergency department today for complaints of shakiness nausea and vomiting concern for alcohol withdrawal. Patient arrived tachycardic heart rate of 150 bpm. Patient was given IV fluid boluses and lab work was obtained. Is not to have acute kidney injury due to nausea vomiting and dehydration. He is given 2 L bolus and started on banana bag as well as Ativan protocol. Patient was informed of these results. Patient will be admitted at this time after discussing with Dr. Knowles. - Lab Data Result diagrams: 04/14/20 10:28 04/14/20 10:28 Lab Results 04/14/20 04/14/20 04/14/20 Range/Units 10:25 10:28 10:28 WBC 9.6 (3.8-10.6) k/uL RBC 5.26 (4.30-5.90) m/uL Hgb 17.8 H (13.0-17.5) gm/dL Hct 51.9 (39.0-53.0) % MCV 98.6 (80.0-100.0) fL MCH 33.9 (25.0-35.0) pg MCHC 34.4 (31.0-37.0) g/dL RDW 13.5 (11.5-15.5) % Plt Count 175 (150-450) k/uL MPV 8.8 Neutrophils % 86 % Lymphocytes % 6 % Monocytes % 5 % Eosinophils % 2 % Basophils % 0 % Neutrophils # 8.2 H (1.3-7.7) k/uL Lymphocytes # 0.6 L (1.0-4.8) k/uL Monocytes # 0.5 (0-1.0) k/uL Eosinophils # 0.2 (0-0.7) k/uL Basophils # 0.0 (0-0.2) k/uL PT 10.4 (9.0-12.0) sec INR 1.0 (<1.2) APTT 22.1 (22.0-30.0) sec Sodium (137-145) mmol/L Potassium (3.5-5.1) mmol/L Chloride (98-107) mmol/L Carbon Dioxide (22-30) mmol/L Anion Gap mmol/L BUN (9-20) mg/dL Creatinine (0.66-1.25) mg/dL Est GFR (CKD-EPI)AfAm (>60 ml/min/1.73 sqM) Est GFR (CKD-EPI)NonAf (>60 ml/min/1.73 sqM) Glucose (74-99) mg/dL Plasma Lactic Acid Dg 3.1 H* (0.7-2.0) mmol/L Calcium (8.4-10.2) mg/dL Magnesium (1.6-2.3) mg/dL Total Bilirubin (0.2-1.3) mg/dL AST (17-59) U/L ALT (4-49) U/L Alkaline Phosphatase (38-126) U/L Total Protein (6.3-8.2) g/dL Albumin (3.5-5.0) g/dL Amylase (30-110) U/L Lipase (23-300) U/L 12/24/20 Range/Units 10:28 WBC (3.8-10.6) k/uL RBC (4.30-5.90) m/uL Hgb (13.0-17.5) gm/dL Hct (39.0-53.0) % MCV (80.0-100.0) fL MCH (25.0-35.0) pg MCHC (31.0-37.0) g/dL RDW (11.5-15.5) % Plt Count (150-450) k/uL MPV Neutrophils % % Lymphocytes % % Monocytes % % Eosinophils % % Basophils % % Neutrophils # (1.3-7.7) k/uL Lymphocytes # (1.0-4.8) k/uL Monocytes # (0-1.0) k/uL Eosinophils # (0-0.7) k/uL Basophils # (0-0.2) k/uL PT (9.0-12.0) sec INR (<1.2) APTT (22.0-30.0) sec Sodium 135 L (137-145) mmol/L Potassium 3.8 (3.5-5.1) mmol/L Chloride 93 L (98-107) mmol/L Carbon Dioxide 18 L (22-30) mmol/L Anion Gap 24 mmol/L BUN 27 H (9-20) mg/dL Creatinine 2.25 H (0.66-1.25) mg/dL Est GFR (CKD-EPI)AfAm 42 (>60 ml/min/1.73 sqM) Est GFR (CKD-EPI)NonAf 36 (>60 ml/min/1.73 sqM) Glucose 221 H (74-99) mg/dL Plasma Lactic Acid Dg (0.7-2.0) mmol/L Calcium 11.7 H (8.4-10.2) mg/dL Magnesium 1.3 L (1.6-2.3) mg/dL Total Bilirubin 2.1 H (0.2-1.3) mg/dL AST 65 H (17-59) U/L ALT 54 H (4-49) U/L Alkaline Phosphatase 65 (38-126) U/L Total Protein 10.1 H (6.3-8.2) g/dL Albumin 5.9 H (3.5-5.0) g/dL Amylase 75 (30-110) U/L Lipase 228 (23-300) U/L 04/14/20 10:55 EKG performed at 10:37 AM shows sinus tachycardia otherwise normal EKG. Ventric ular rate of 133 bpm. Pulse 132 most seconds. She restorationist is 70 ms. QT QTc is 312/464 ms. Disposition Clinical Impression: Alcohol withdrawal, Hypomagnesemia, Dehydration, Hyperglycemia, Tachycardia Disposition: ADMITTED IP TO THIS HOSP Condition: Stable Is patient prescribed a controlled substance at d/c from ED?: No Referrals: Nonstaff,Physician [REFERRING] - 1-2 days Time of Disposition: 11:52
[2020-04-14 10:45] LABS: Basophils % (A) 0 %; Eosinophils # (A) 0.2 k/uL (0-0.7); Eosinophils % (A) 2 %; HCT 51.9 % (39.0-53.0); HGB 17.8 gm/dL (13.0-17.5); Lymphocytes # (A) 0.6 k/uL (1.0-4.8); Lymphocytes % (A) 6 %; MCH 33.9 pg (25.0-35.0); MCHC 34.4 g/dL (31.0-37.0); MCV 98.6 fL (80.0-100.0); Mean Platelet Volume 8.8; Monocytes # (A) 0.5 k/uL (0-1.0); Monocytes % (A) 5 %; Neutrophils # (A) 8.2 k/uL (1.3-7.7); Neutrophils % (A) 86 %; Platelet Count 175 k/uL (150-450); RBC 5.26 m/uL (4.30-5.90); RDW 13.5 % (11.5-15.5); WBC 9.6 k/uL (3.8-10.6)
[2020-04-14 10:57] LABS: Albumin 5.9 g/dL (3.5-5.0); Calcium 11.7 mg/dL (8.4-10.2); Magnesium 1.3 mg/dL (1.6-2.3); Potassium 3.8 mmol/L (3.5-5.1); Total Bilirubin 2.1 mg/dL (0.2-1.3); Total Protein 10.1 g/dL (6.3-8.2)
[2020-04-14 11:18] LABS: Partial Thromboplastin Time 22.1 sec (22.0-30.0); Prothrombin Time 10.4 sec (9.0-12.0)
[2020-04-14] MEDS ORDERED: SODIUM CHLORIDE 0.9% 1,000 ML IV ONE (11:22)
[2020-04-14] MEDS ORDERED: MAGNESIUM OXIDE 400 MG TAB PO STA (11:51)
[2020-04-14] MEDS ORDERED: SODIUM CHLORIDE 0.9% 1,000 ML with MVI, ADULT NO.4 WITH VIT K 10 ML, THIAMINE 100 MG, F... IV ONE ×4 (11:51)
[2020-04-14] MEDS ORDERED: KETOROLAC 15 MG/ML 1 ML VIAL IVP PRN (11:53)
[2020-04-14] MEDS ORDERED: MORPHINE SULFATE 4 MG/ML SYRINGE IV PRN (11:53)
[2020-04-14] MEDS ORDERED: NALOXONE 0.4 MG/ML 1 ML VIAL IV PRN (11:53)
[2020-04-14] MEDS ORDERED: IBUPROFEN 400 MG TAB PO PRN (11:53)
[2020-04-14] MEDS ORDERED: ACETAMINOPHEN TAB 325 MG TAB PO PRN (11:53)
[2020-04-14] MEDS: SODIUM CHLORIDE 0.9% 1,000 ML IV SCH (12:04)
[2020-04-14 12:17] LABS: Appearance,Urine Clear (Clear); Bilirubin,Urine Negative (Negative); Blood,Urine Small (Negative); Color,Urine Light Yellow; Glucose,Urine (UA) Negative (Negative); Ketones,Urine Trace (Negative); Leukocyte Esterase,Urine Negative (Negative); Nitrite,Urine Negative (Negative); PH, Urine 6.5 (5.0-8.0); Protein,Urine 1+ (Negative); RBC,Urine <1 /hpf (0-5); Specific Gravity,Urine 1.003 (1.001-1.035); Urobilinogen,Urine <2.0 mg/dL (<2.0); WBC,Urine 1 /hpf (0-5)
[2020-04-14] MEDS: ONDANSETRON 4 MG/2 ML VIAL IVP PRN (14:22)
[2020-04-14] MEDS: busPIRone HCl 10 MG TAB PO SCH (19:39)
--- NOTE | 2020-04-14 23:07 | P.HPIM ---
History of Present Illness H&P Date: 04/14/20 Chief Complaint: Alcohol withdrawal, nausea, tachycardia, severe dehydration, severe depress 55-year-old male one of Dr. Craven patient with the past medical history of alcoholism, depression, anxiety attacks who presented to the emergency department at [facility] today complaining of alcohol withdrawal symptoms of nausea and vomiting which shakiness and tachycardia with sweating not been able to tolerate any food or fluid. Patient apparently had last drink on Saturday and has been going through a rough time since he normally drink about a pint a day. Patient is going through a divorce and going through a rough time for the holiday for now. His clinical finding was significant tachycardia with normal pulse oximetry lab shows blood sugar of 221 with acute kidney injury creatinine 2.25 bun 27 magnesium was quite bit low at 1.3 lactic acid was elevated 2.1 with abnormal liver function test his total protein was 10.1 with normal amylase and lipase. Patient was diagnosed with acute kidney injury, alcohol withdrawal, severe depression, hyperglycemia, hyper proteinemia. Patient was started on hydration and antiarrhythmic medication replacement for m agnesium will continue Accu-Chek with sliding scales coverage would have psych seen patient in consultation patient to be started back on his home meds which originally was taking magnesium BuSpar and Zoloft. Patient was start on the CIWA protocol along with lorazepam and electrolyte placement and admitted to the hospital will consult psychiatry and if her ALLERGY. Review of Systems CONSTITUTIONAL: Well-developed no acute respiratory distress. EYES: No icterus sclerae, no conjunctivitis. EARS, NOSE, MOUTH, THROAT, and FACE: No sore throat, lymphadenopathy, carotid bruits or deformity. RESPIRATORY: No cough or wheezes. Mild shortness of breath CARDIOVASCULAR: No CP, PND, Orthopnea, or angina. Mild tachycardia GASTROINTESTINAL: Nausea with vomiting no diarrhea mild abdominal pain mostly epigastric. GENITOURINARY: Negative for Hematuria or UTI, no kidney stones. INTEGUMENT/BREAST: Negative for any muscular injury with mild osteoarthritis.. HEMATOLOGIC/LYMPHATIC: Negative for bleed or purpura. MUSCULOSKELTAL: Negative for Myalgia or arthralgia. NEURLOGICAL: No LOC, Sz or syncope, blurred vision dizziness or abnormality.. BEHAVIORAL/PSYCH: Negative. Mild depression ENDOCRINE: Negative. Social history: Patient is live with his sisters currently he drinks 1 pint of alcohol 3 times a week for the last 5 years and has been trying to quit for the last year was in rehab last time in November and he does AA every so often. He chewed tobacco daily does not use marijuana. Family history: Patient father has passed CAD, mother still living, patient had 3 biological sibling and 3/2 siblings they're all living and well. Patient does not have any children. Past Medical History Past Medical History: No Reported History History of Any Multi-Drug Resistant Organisms: None Reported Past Surgical History: Adenoidectomy Past Anesthesia/Blood Transfusion Reactions: No Reported Reaction Past Psychological History: Anxiety, Depression Smoking Status: Never smoker Past Alcohol Use History: Abuse, Daily, Heavy Past Drug Use History: None Reported - Past Family History Father Family Medical History: Cancer Additional Family Medical History / Comment(s): from lung cancer Mother Family Medical History: Thyroid Disorder Additional Family Medical History / Comment(s): Autoimmune liver cirrhosis Medications and Allergies Home Medications Medication Instructions Recorded Confirmed Type Multivitamins, Thera [Multivitamin 1 tab PO DAILY 01/26/20 04/14/20 History (formulary)] Sertraline [Zoloft] 100 mg PO DAILY 01/26/20 04/14/20 History busPIRone HCl [Buspar] 10 mg PO BID 01/26/20 04/14/20 History Magnesium Oxide [Mag-Ox] 400 mg PO DAILY #30 tablet 01/28/20 04/14/20 Rx Cetirizine HCl [Zyrtec] 10 mg PO DAILY 04/14/20 04/14/20 History Allergies Allergy/AdvReac Type Severity Reaction Status Date / Time No Known Allergies Allergy Verified 04/14/20 13:39 Physical Exam Vitals: Vital Signs Temp Pulse Resp BP Pulse Ox 04/14/20 14:31 98.2 F 122 H 18 126/83 96 04/14/20 13:04 122 H 18 126/83 96 04/14/20 12:00 122 H 18 126/96 97 04/14/20 11:24 124 H 18 137/99 96 04/14/20 10:12 98.2 F 150 H 16 128/87 96 Intake and Output 04/13/20 04/14/20 04/14/20 22:59 06:59 14:59 Other: Weight 86.183 kg General Appearance: Alert, cooperative, no distress, appears stated age. Neck HEENT: Supple, no lymphadenopathy, no thyroid enlargement, no carotid b ruits. Lungs: Clear to auscultation without crackles or wheezes no rhonchi, no deformity. Chest Wall: Decrease expansion with deep inspiration no tenderness and no deformity was found on exam, no costochondral pain or discomfort. Heart: Regular rate and rhythm, S1, S2 normal, no murmur, rub or gallop. Back: Symmetric, no curvature, ROM normal, no CVA tenderness. Abdomen: Soft positive bowel sounds slight discomfort and epigastric area no rebound or rigidity slight hepatomegaly. Extremities: Extremities normal, atraumatic, no cyanosis or edema. Pulses: 2+ and symmetric. Skin: Skin color, texture, tugor normal, no rashes or lesions. Neurologic: Alert oriented x3 cranial nerves II through XII intact, no motor deficit, slight irritability with abnormal balance Results CBC & Chem 7: 04/15/20 07:46 04/15/20 07:46 Labs: Abnormal Lab Results - Last 24 Hours (Table) 04/14/20 04/14/20 04/14/20 Range/Units 10:25 10:28 10:28 Hgb 17.8 H (13.0-17.5) gm/dL Neutrophils # 8.2 H (1.3-7.7) k/uL Lymphocytes # 0.6 L (1.0-4.8) k/uL Sodium 135 L (137-145) mmol/L Chloride 93 L (98-107) mmol/L Carbon Dioxide 18 L (22-30) mmol/L BUN 27 H (9-20) mg/dL Creatinine 2.25 H (0.66-1.25) mg/dL Glucose 221 H (74-99) mg/dL Plasma Lactic Acid Dg 3.1 H* (0.7-2.0) mmol/L Calcium 11.7 H (8.4-10.2) mg/dL Magnesium 1.3 L (1.6-2.3) mg/dL Total Bilirubin 2.1 H (0.2-1.3) mg/dL AST 65 H (17-59) U/L ALT 54 H (4-49) U/L Total Protein 10.1 H (6.3-8.2) g/dL Albumin 5.9 H (3.5-5.0) g/dL Urine Protein (Negative) Urine Ketones (Negative) Urine Blood (Negative) 04/14/20 Range/Units 12:08 Hgb (13.0-17.5) gm/dL Neutrophils # (1.3-7.7) k/uL Lymphocytes # (1.0-4.8) k/uL Sodium (137-145) mmol/L Chloride (98-107) mmol/L Carbon Dioxide (22-30) mmol/L BUN (9-20) mg/dL Creatinine (0.66-1.25) mg/dL Glucose (74-99) mg/dL Plasma Lactic Acid Dg (0.7-2.0) mmol/L Calcium (8.4-10.2) mg/dL Magnesium (1.6-2.3) mg/dL Total Bilirubin (0.2-1.3) mg/dL AST (17-59) U/L ALT (4-49) U/L Total Protein (6.3-8.2) g/dL Albumin (3.5-5.0) g/dL Urine Protein 1+ H (Negative) Urine Ketones Trace H (Negative) Urine Blood Small H (Negative) Thrombosis Risk Factor Assmnt - DVT/VTE Prophylaxis DVT/VTE Prophylaxis: Mechanical Prophylaxis ordered Assessment and Plan Assessment: 1 acute kidney injury: Secondary to dehydration along with alcohol toxicity and elects slight imbalance other possibility such as chronic kidney disease, chemical toxicity, hepatorenal syndrome and other is a possibility patient also has quite bed elevated protein chance and either of multiple myeloma or Weldestrom disease is quite bit high further testing to be done we'll consult nephrology continue hydration repeat urine creatinine next 24 hours. 2 alcohol withdrawal with severe irritability with history of alcoholism, patient was started on CIWA protocol will continue IV fluid along with multivitamins specially folic acid continue to replace magnesium and other electrolytes. 3 tachycardia: Most likely secondary to alcohol withdrawal symptoms continue hydration and use lorazepam if still tachycardic will use smaller dose of calcium channel brenda or beta brenda. 4 hyperproteinemia: Not a clear etiology whether this is side effect from alcoholism along with [place] cytopenia not a clear so far but patient would have protein electrophoresis continue hydration repeat CMP. 5 hypomagnesemia and electrolyte imbalance: Continue hydration and replacement therapy. 6 acute lactic acidosis: Secondary to dehydration and acute kidney injury, continue hydration repeat lactic acid continue to search for any sign and symptom of infection. 7 severe abnormal liver function tests: Secondary to alcoholism will continue to watch liver function tests ultrasound of the liver might be done. 8 chronic depression: Has been on Zoloft and BuSpar continue medication. 9 GI prophylaxis: Patient be on pantoprazole 40 mg IV daily. 10 DVT prophylaxis: Patient will be on knee-high JOELLEN hose and Venodyne boots. CODE STATUS: Full code. Admit patient to inpatient status for more than 2 night stay.
[2020-04-15] MEDS: ONDANSETRON 4 MG/2 ML VIAL IVP PRN ×3 (00:15→18:21)
[2020-04-15] MEDS: INSULIN ASPART (NovoLOG) 100 UNIT/ML VIAL SQ SCH ×4 (06:37→21:42)
[2020-04-15 08:22] LABS: HGB 15.4 gm/dL (13.0-17.5); MCH 35.3 pg (25.0-35.0); MCHC 35.1 g/dL (31.0-37.0); MCV 100.7 fL (80.0-100.0); Mean Platelet Volume 8.9; Platelet Count 108 k/uL (150-450); RBC 4.37 m/uL (4.30-5.90); RDW 12.8 % (11.5-15.5); WBC 5.1 k/uL (3.8-10.6)
[2020-04-15 08:31] LABS: African American GFR (CKD) >90 (>60 ml/min/1.73 sqM); Albumin 4.4 g/dL (3.5-5.0); Anion Gap 7 mmol/L; Blood Urea Nitrogen 16 mg/dL (9-20); Carbon Dioxide 32 mmol/L (22-30); Chloride 100 mmol/L (98-107); Glucose 92 mg/dL (74-99); Non-African American GFR(CKD) >90 (>60 ml/min/1.73 sqM); Potassium 3.5 mmol/L (3.5-5.1); Sodium 139 mmol/L (137-145); Total Protein 7.4 g/dL (6.3-8.2)
[2020-04-15 08:32] LABS: ALT 79 U/L (4-49); AST 103 U/L (17-59); Alkaline Phosphatase 33 U/L (38-126); Calcium 9.6 mg/dL (8.4-10.2); Total Bilirubin 1.5 mg/dL (0.2-1.3)
[2020-04-15] MEDS: SERTRALINE 100 MG TAB PO SCH (11:03)
[2020-04-15] MEDS: MAGNESIUM OXIDE 400 MG TAB PO SCH (11:03)
[2020-04-15] MEDS: LORATADINE 10 MG TAB PO SCH (11:03)
[2020-04-15] MEDS: busPIRone HCl 10 MG TAB PO SCH ×2 (11:03→22:43)
[2020-04-15] MEDS: MULTIVITAMINS, THERA 1 EACH TAB PO SCH (11:03)
[2020-04-15] MEDS: PANTOPRAZOLE 40 MG/10 ML VIAL IV SCH (11:04)
--- NOTE | 2020-04-15 11:14 | P.NPCON ---
History of Present Illness - Reason for Consult Consult date: 04/15/20 acute renal failure - Chief Complaint Acute kidney injury - History of Present Illness Patient was consulted because of acute kidney injury. His renal failure has resolved with IV hydration. Therefore will not see the patient and have the community development specialist canceled this consult Past Medical History Past Medical History: No Reported History Additional Past Medical History / Comment(s): pt hospitalized in Jan for ETOH abuse and Suicidal ideation History of Any Multi-Drug Resistant Organisms: None Reported Past Surgical History: Adenoidectomy Past Anesthesia/Blood Transfusion Reactions: No Reported Reaction Past Psychological History: Anxiety, Depression Smoking Status: Never smoker Past Alcohol Use History: Abuse, Daily, Heavy Past Drug Use History: None Reported - Past Family History Father Family Medical History: Cancer Additional Family Medical History / Comment(s): from lung cancer Mother Family Medical History: Thyroid Disorder Additional Family Medical History / Comment(s): Autoimmune liver cirrhosis Medications and Allergies Home Medications Medication Instructions Recorded Confirmed Type Multivitamins, Thera [Multivitamin 1 tab PO DAILY 01/26/20 04/14/20 History (formulary)] Sertraline [Zoloft] 100 mg PO DAILY 01/26/20 04/14/20 History busPIRone HCl [Buspar] 10 mg PO BID 01/26/20 04/14/20 History Magnesium Oxide [Mag-Ox] 400 mg PO DAILY #30 tablet 01/28/20 04/14/20 Rx Cetirizine HCl [Zyrtec] 10 mg PO DAILY 04/14/20 04/14/20 History Allergies Allergy/AdvReac Type Severity Reaction Status Date / Time No Known Allergies Allergy Verified 04/14/20 13:39 Physical Exam Vitals: Vital Signs Temp Pulse Pulse Resp BP BP Pulse Ox 04/15/20 03:46 98.5 F 96 16 120/79 98 04/14/20 23:55 98.6 F 110 H 17 122/73 96 04/14/20 20:00 98.8 F 116 H 16 125/87 96 04/14/20 16:00 98.2 F 117 H 14 133/67 97 04/14/20 14:31 98.2 F 122 H 18 126/83 96 04/14/20 13:04 122 H 18 126/83 96 04/14/20 12:00 122 H 18 126/96 97 04/14/20 11:24 124 H 18 137/99 96 Intake and Output 04/14/20 04/15/20 04/15/20 22:59 06:59 14:59 Other: Voiding Method Toilet Toilet # Voids 2 2 Weight 84.1 kg Results - Lab Results Most recent lab results Calcium 9.6 mg/dL (8.4-10.2) 04/15/20 07:46 Magnesium 1.6 mg/dL (1.6-2.3) 04/15/20 07:46 04/15/20 07:46 04/15/20 07:46
[2020-04-15 12:07] LABS: Protein, Total 6.8 g/dL (6.2-8.2)
[2020-04-15 12:45] VITALS: BMI 26.6
[2020-04-15] MEDS: OLANZapine 5 MG TAB PO SCH ×3 (13:15→22:43)
[2020-04-15] MEDS: SODIUM CHLORIDE 0.9% 1,000 ML IV SCH (13:16)
--- NOTE | 2020-04-15 13:47 | CONS ---
CONSULTATION DATE OF SERVICE: 04/15/2020 PURPOSE FOR CONSULTATION: Evaluate for alcohol dependence and acute alcohol withdrawal. HISTORY OF PRESENTING ILLNESS: The patient is a 35-year-old male who was admitted to the medical floor due to symptoms of alcohol withdrawal including nausea, vomiting, shaking and tachycardia. He drinks 1 pint per day. His last drink was Saturday. He has had significant stress issues in part relating to divorce. The patient had a similar admission on 01/26/2020 to this facility for withdrawal related issues. At that time he also reported depression with suicidal thinking and was seen by Psychiatry. I refer the reader to Dr. Tinoco's psychiatric consultation of 01/27/2020 for details. The patient notes that he generally drinks 3-4 times a week and will typically drink a pint when he drinks. He has been in rehabilitation in the past with his last stint being in September for 2 weeks at a facility in [place]. He said after he left the facility, he was free of alcohol use for about 1 month, then he slowly got back into using. He said there would typically be some trigger of stress that would get him to drinking. He had been attending AA meetings and working with counselors, though he thought that he was doing fairly well and got away from that toward the end of the summer. He sees a counselor in [facility] and also has a counselor at a [facility]. Both counselors do zoom calls. Currently he lives with his sister. He is on Zoloft 100 mg a day and BuSpar 10 mg twice a day as his only psychotropic medications. Patient denies a past history of delirium tremens or withdrawal related seizures. He reports no use of other abusive substances. He said in this current situation, he had decided to stop using and after drinking on Saturday he said his plan was to not drink. He started having withdrawal symptoms that got worse, including nausea, vomiting, and other physical signs as noted on the admission. He has had sleep problems, mood difficulties, anxiety, all related to alcohol withdrawal. When I talked to him today, he said that he was very clear about the plan that he needs to be off alcohol completely. He says his mood is down. He struggles with anxiety relating to a lot of social stress issues. He said that he is very clear about the idea that he does not have any suicide thoughts and can recognize some of the problems he had in January which brought up those feelings. He has not had a past effort towards self-harm. He has not had psychotic symptoms. He does not identify any hypomanic or manic symptoms. MENTAL STATUS EXAM: Patient was lying in bed. He gave good eye contact. He was somewhat restless. He answered questions appropriately. His thoughts were clear, coherent, and goal directed. He had a somewhat constricted affect. He had a friendly, though reserved manner. His mood was dysphoric. He was significantly distressed. There was no indication of thought disorder. He denied thoughts of harm to self or others. Cognition was clear. ASSESSMENT: This 35-year-old male is diagnosed with alcohol dependence and acute alcohol withdrawal. In addition, he is diagnosed with depression. I had an extensive discussion with the patient regarding withdrawal issues. We discussed the time course and expectations in early withdrawal. It shared with the patient that for the next 6 weeks, the primary focus needs to be on managing alcohol withdrawal. I provided a handout for the patient to clarify these issues and provide some suggestions of things that he can do to better manage his early withdrawal issues. We discussed that antidepressant have little or no benefit in the first 6 weeks of withdrawal. I will start the patient on Zyprexa 5 mg 3 times a day. The aim of Zyprexa is to help reduce physiologic stress response relating to acute alcohol withdrawal. I discussed the potential use of Vivitrol. At this point it is noted that the patient is able to connect with his counselors both in [facility] and at [facility]. He said he has the intention to do that as well as getting back to one line AA meetings, which he had been doing this past summer. I will continue to follow. MMODL / IJN: [id number] /
[2020-04-15] MEDS ORDERED: LORazepam 2 MG/ML INJ IV STA (21:14)
[2020-04-15] MEDS ORDERED: TRIMETHOBENZAMIDE 100 MG/ML 2 ML VIAL IM PRN (22:00)
[2020-04-16 05:01] VITALS: RESP 18
[2020-04-16] MEDS: INSULIN ASPART (NovoLOG) 100 UNIT/ML VIAL SQ SCH ×2 (06:19→12:57)
[2020-04-16 08:01] LABS: HCT 44.6 % (39.0-53.0); HGB 15.1 gm/dL (13.0-17.5); MCH 33.8 pg (25.0-35.0); MCHC 33.8 g/dL (31.0-37.0); MCV 99.9 fL (80.0-100.0); RBC 4.47 m/uL (4.30-5.90); RDW 13.4 % (11.5-15.5); WBC 4.4 k/uL (3.8-10.6)
[2020-04-16 08:08] LABS: ALT 88 U/L (4-49); AST 84 U/L (17-59); African American GFR (CKD) >90 (>60 ml/min/1.73 sqM); Albumin 4.6 g/dL (3.5-5.0); Alkaline Phosphatase 36 U/L (38-126); Anion Gap 7 mmol/L; Blood Urea Nitrogen 12 mg/dL (9-20); Calcium 9.9 mg/dL (8.4-10.2); Carbon Dioxide 31 mmol/L (22-30); Chloride 101 mmol/L (98-107); Glucose 97 mg/dL (74-99); Non-African American GFR(CKD) >90 (>60 ml/min/1.73 sqM); Potassium 3.4 mmol/L (3.5-5.1); Sodium 139 mmol/L (137-145); Total Bilirubin 1.5 mg/dL (0.2-1.3); Total Protein 7.6 g/dL (6.3-8.2)
[2020-04-16 08:55] LABS: Platelet Count 98 k/uL (150-450)
[2020-04-16] MEDS: busPIRone HCl 10 MG TAB PO SCH (10:16)
[2020-04-16] MEDS: MAGNESIUM OXIDE 400 MG TAB PO SCH (10:16)
[2020-04-16] MEDS: MULTIVITAMINS, THERA 1 EACH TAB PO SCH (10:16)
[2020-04-16] MEDS: LORATADINE 10 MG TAB PO SCH (10:16)
[2020-04-16] MEDS: SERTRALINE 100 MG TAB PO SCH (10:16)
[2020-04-16] MEDS: PANTOPRAZOLE 40 MG/10 ML VIAL IV SCH (10:17)
[2020-04-16] MEDS: OLANZapine 5 MG TAB PO SCH (10:17)
[2020-04-16 10:49] VITALS: BP 137/81; TEMP 98.7
[2020-04-16] MEDS: SODIUM CHLORIDE 0.9% 1,000 ML IV SCH (12:57)
--- NOTE | 2020-04-16 12:59 | P.DS ---
Providers Date of admission: 04/14/20 12:40 Attending physician: Adi Worthington Consults: 04/14/20 22:53 Consult Physician Routine Consulting Provider: 04/14/20 22:55 Consult Physician Routine Consulting Provider: Rivera Arenas Consult Reason/Comments: ETOH and severe Depression. Do you want consulting provider notified?: Yes Consult Physician Routine Consulting Provider: Eloise Redmond Consult Reason/Comments: RHINA Do you want consulting provider notified?: Yes Primary care physician: Francisco Javier [facility] Course: Principal diagnosis: Alcohol withdrawal, nausea, tachycardia, severe dehydration, severe depression along with intractable nausea vomiting 55-year-old male one of Dr. Craven patient with the past medical history of alcoholism, depression, anxiety attacks who presented to the emergency department at [facility] today complaining of alcohol withdrawal symptoms of nausea and vomiting which shakiness and tachycardia with sweating not been able to tolerate any food or fluid. Patient apparently had last drink on Saturday and has been going through a rough time since he normally drink about a pint a day. Patient is going through a divorce and going through a rough time for the holiday for now. His clinical finding was significant tachycardia with normal pulse oximetry lab shows blood sugar of 221 with acute kidney injury creatinine 2.25 bun 27 magnesium was quite bit low at 1.3 lactic acid was elevated 2.1 with abnormal liver function test his total protein was 10.1 with normal amylase and lipase. Patient was diagnosed with acute kidney injury, alcohol withdrawal, severe depression, hyperglycemia, hyper proteinemia. Patient was started on hydration and antiarrhythmic medication replacement for magnesium will continue Accu-Chek with sliding scales coverage would have psych seen patient in consultation patient to be started back on his home meds which originally was taking magnesium BuSpar and Zoloft. Patient was start on the CIWA protocol along with lorazepam and electrolyte placement and admitted to the hospital will consult psychiatry and if her ALLERGY. 04/15: Patient symptoms are much better no withdrawal symptom no worsening depression, was seen psych medication were change in patient seems to do slightly better with it continued to have mild nausea vomiting not able to tolerate his food and full. Patient withdrawal symptom has been well treated with lorazepam with good result so far. His lab including protein along with kidney function and magnesium potassium are much better continue electrolyte r eplacement therapy. Patient possibly will be discharged home tomorrow. Objective - Vital Signs Vital signs: Vital Signs Temp 98.8 F 04/15/20 15:20 Pulse 100 04/15/20 15:20 Resp 18 04/15/20 15:20 BP 110/66 04/15/20 15:20 Pulse Ox 99 04/15/20 15:20 Intake & Output 04/14/20 04/15/20 04/15/20 18:59 06:59 18:59 Weight 86.183 kg 84.1 kg 84.1 kg Other: Voiding Method Toilet Toilet # Voids 2 2 1 - Exam Review of Systems CONSTITUTIONAL: Well-developed no acute respiratory distress. EYES: No icterus sclerae, no conjunctivitis. EARS, NOSE, MOUTH, THROAT, and FACE: No sore throat, lymphadenopathy, carotid bruits or deformity. RESPIRATORY: No cough or wheezes. Mild shortness of breath CARDIOVASCULAR: No CP, PND, Orthopnea, or angina. Mild tachycardia GASTROINTESTINAL: Nausea with vomiting no diarrhea mild abdominal pain mostly epigastric. GENITOURINARY: Negative for Hematuria or UTI, no kidney stones. INTEGUMENT/BREAST: Negative for any muscular injury with mild osteoarthritis.. HEMATOLOGIC/LYMPHATIC: Negative for bleed or purpura. MUSCULOSKELTAL: Negative for Myalgia or arthralgia. NEURLOGICAL: No LOC, Sz or syncope, blurred vision dizziness or abnormality.. BEHAVIORAL/PSYCH: Negative. Mild depression ENDOCRINE: Negative. Physical Exam Vitals: Vital Signs Temp Pulse Resp BP Pulse Ox 04/14/20 14:31 98.2 F 122 H 18 126/83 96 04/14/20 13:04 122 H 18 126/83 96 04/14/20 12:00 122 H 18 126/96 97 04/14/20 11:24 124 H 18 137/99 96 04/14/20 10:12 98.2 F 150 H 16 128/87 96 Intake and Output 04/13/20 04/14/20 04/14/20 22:59 06:59 14:59 Other: Weight 86.183 kg General Appearance: Alert, cooperative, no distress, appears stated age. Neck HEENT: Supple, no lymphadenopathy, no thyroid enlargement, no carotid bruits. Lungs: Clear to auscultation without crackles or wheezes no rhonchi, no deformity. Chest Wall: Decrease expansion with deep inspiration no tenderness and no deformity was found on exam, no costochondral pain or discomfort. Heart: Regular rate and rhythm, S1, S2 normal, no murmur, rub or gallop. Back: Symmetric, no curvature, ROM normal, no CVA tenderness. Abdomen: Soft positive bowel sounds slight discomfort and epigastric area no rebound or rigidity slight hepatomegaly. Extremities: Extremities normal, atraumatic, no cyanosis or edema. Pulses: 2+ and symmetric. Skin: Skin color, texture, tugor normal, no rashes or lesions. Neurologic: Alert oriented x3 cranial nerves II through XII intact, no motor deficit, slight irritability with abnormal balance - Labs CBC & Chem 7: 04/16/20 07:09 04/16/20 07:09 Labs: Abnormal Lab Results - Last 24 Hours (Table) 04/14/20 04/15/20 04/15/20 Range/Units 23:25 07:46 07:46 MCV 100.7 H (80.0-100.0) fL MCH 35.3 H (25.0-35.0) pg Plt Count 108 L (150-450) k/uL Carbon Dioxide 32 H (22-30) mmol/L Magnesium 1.5 L (1.6-2.3) mg/dL Total Bilirubin 1.5 H (0.2-1.3) mg/dL AST 103 H (17-59) U/L ALT 79 H (4-49) U/L Alkaline Phosphatase 33 L (38-126) U/L Assessment and Plan Assessment: 1 acute kidney injury: So far back to its baseline with no further change in kidney function continue hydration recheck BUN/creatinine next 24 hours. 2 alcohol withdrawal with severe irritability with history of alcoholism, patient was started on CIWA protocol will continue IV fluid along with multivitamins specially folic acid continue to replace magnesium and other electrolytes. 3 tachycardia: Most likely secondary to alcohol withdrawal symptoms continue hydration and use lorazepam if still tachycardic will use smaller dose of calcium channel brenda or beta brenda. 4 hyperproteinemia: Was most likely secondary to severe dehydration has improved with hydration only no further testing needed. 5 hypomagnesemia and electrolyte imbalance: Continue hydration and replacement therapy. 6 acute lactic acidosis: Secondary to dehydration and acute kidney injury, lactic acid is back to normal. 7 severe abnormal liver function tests: Secondary to alcoholism will continue to watch liver function tests ultrasound of the liver might be done. 8 chronic depression: Has been on Zoloft and BuSpar continue medication. Discharge planning: Possibly charge home. Hospital course: Patient was seen nephrology with his withdrawal symptom has improved significantly patient is not symptomatic able to tolerate his foot and fluid his depression is well treated with medication recommended by psych. Patient is stable to be discharged home today to follow with his primary care physician and probably follow-up with AA on weekly basis.. Patient Condition at Discharge: Stable Plan - Discharge Summary Discharge Rx Participant: Yes New Discharge Prescriptions: New LORazepam [Ativan] 0.5 mg PO BID 3 Days #15 tab Potassium Chloride [Klor-Con 10] 10 meq PO DAILY #10 tablet.er OLANZapine [ZyPREXA] 5 mg PO TID #90 tab Ondansetron HCl [Zofran] 4 mg PO Q8H PRN #20 tab PRN Reason: Nausea And Vomiting Continue Multivitamins, Thera [Multivitamin (formulary)] 1 tab PO DAILY busPIRone HCl [Buspar] 10 mg PO BID Sertraline [Zoloft] 100 mg PO DAILY Cetirizine HCl [Zyrtec] 10 mg PO DAILY Changed Magnesium Oxide [Mag-Ox] 400 mg PO BID #30 tablet Discharge Medication List Multivitamins, Thera [Multivitamin (formulary)] 1 tab PO DAILY 01/26/20 [History] Sertraline [Zoloft] 100 mg PO DAILY 01/26/20 [History] busPIRone HCl [Buspar] 10 mg PO BID 01/26/20 [History] Cetirizine HCl [Zyrtec] 10 mg PO DAILY 04/14/20 [History] LORazepam [Ativan] 0.5 mg PO BID 3 Days #15 tab 04/16/20 [Rx] Magnesium Oxide [Mag-Ox] 400 mg PO BID #30 tablet 04/16/20 [Rx] OLANZapine [ZyPREXA] 5 mg PO TID #90 tab 04/16/20 [Rx] Ondansetron HCl [Zofran] 4 mg PO Q8H PRN #20 tab 04/16/20 [Rx] Potassium Chloride [Klor-Con 10] 10 meq PO DAILY #10 tablet.er 04/16/20 [Rx] Follow up Appointment(s)/Referral(s): Francisco Javier Craven DO [Primary Care Provider] - 1 Week Discharge Disposition: HOME SELF-CARE
[2020-04-16 14:18] VITALS: PULSE 110
[2020-04-17 09:34] LABS: Glucose,Whole Blood 95 mg/dL (75-99)
[2020-04-17 09:35] LABS: Glucose,Whole Blood 96 mg/dL (75-99)
[2020-04-19 14:36] LABS: Albumin 4.23 g/dL (3.80-4.90); Gamma Globulin 0.88 g/dL (0.70-1.50)
[2020-04-21 05:31] LABS: Glucose,Whole Blood 103 mg/dL (75-99)
[2020-04-21 05:31] LABS: Glucose,Whole Blood 85 mg/dL (75-99)
[2020-04-21 05:31] LABS: Glucose,Whole Blood 111 mg/dL (75-99)
[2020-04-21 05:31] LABS: Glucose,Whole Blood 106 mg/dL (75-99)
== END 2020-04-16 15:45 | disposition home or self-care (01) | DRG 897 ==
LOC: EC 10:09 → 3SCARD 12:40
PROVIDERS: ADMIT Internal Medicine Geriatric Medicine; ATTEND Internal Medicine Geriatric Medicine
DX: F10.239 Alcohol dependence with withdrawal, unspecified (principal); E87.2 Acidosis; N17.9 Acute kidney failure, unspecified; R45.851 Suicidal ideations; E83.42 Hypomagnesemia; E86.0 Dehydration; E88.09 Other disorders of plasma-protein metabolism, not elsewhere classified; F32.9 Major depressive disorder, single episode, unspecified; F41.1 Generalized anxiety disorder; Z60.9 Problem related to social environment, unspecified; Z82.49 Family history of ischemic heart disease and other diseases of the circulatory system; Z80.1 Family history of malignant neoplasm of trachea, bronchus and lung; Z79.899 Other long term (current) drug therapy; Z79.82 Long term (current) use of aspirin; Z73.3 Stress, not elsewhere classified; Z90.89 Acquired absence of other organs; Z83.79 Family history of other diseases of the digestive system
CPT/HCPCS: 36415; 80053; 81001; 82075; 82150; 83605; 83690; 83735; 84165; 85025; 85027; 85610; 85730; 93005; 96361; 96372; 96374; 96375; 96376; 99285

== ENCOUNTER 2020-07-11 10:50 | Emergency (ER) | payer OTHER ==
[2020-07-11 10:54] VITALS: TEMP 97.9
[2020-07-11] MEDS ORDERED: SODIUM CHLORIDE 0.9% 500 ML 500 ML IV ONE (11:07)
[2020-07-11] MEDS ORDERED: SODIUM CHLORIDE 0.9% 1,000 ML IV ONE (11:07)
[2020-07-11] MEDS ORDERED: LORazepam 2 MG/ML INJ IV STA (11:08)
[2020-07-11] MEDS ORDERED: ONDANSETRON 4 MG/2 ML VIAL IVP STA (11:11)
--- NOTE | 2020-07-11 11:11 | ED ---
General Adult HPI - General Chief complaint: Alcohol Stated complaint: ETOH withdrawals Time Seen by Provider: 07/11/20 10:50 Source: patient, RN notes reviewed, old records reviewed Mode of arrival: ambulatory Limitations: no limitations - History of Present Illness Initial comments: This is a 35-year-old male with past medical history significant for alcoholism. Patient states he hasn't drink in a month. Patient states on and Saturday started to drink heavily. Patient states that he has stopped and now he is very nauseated and can't stop vomiting. Patient states been unable to keep anything down. Patient denies any shakes. Patient states he feels dehydrated and can't sleep. Patient states this happens typically when he stops drinking. - Related Data Home Medications Medication Instructions Recorded Confirmed Multivitamins, Thera [Multivitamin 1 tab PO DAILY 01/26/20 04/14/20 (formulary)] Sertraline [Zoloft] 100 mg PO DAILY 01/26/20 04/14/20 busPIRone HCl [Buspar] 10 mg PO BID 01/26/20 04/14/20 Cetirizine HCl [Zyrtec] 10 mg PO DAILY 04/14/20 04/14/20 Previous Rx's Medication Instructions Recorded LORazepam [Ativan] 0.5 mg PO BID 3 Days #15 tab 04/16/20 Magnesium Oxide [Mag-Ox] 400 mg PO BID #30 tablet 04/16/20 OLANZapine [ZyPREXA] 5 mg PO TID #90 tab 04/16/20 Ondansetron HCl [Zofran] 4 mg PO Q8H PRN #20 tab 04/16/20 Potassium Chloride [Klor-Con 10] 10 meq PO DAILY #10 tablet.er 04/16/20 Allergies Allergy/AdvReac Type Severity Reaction Status Date / Time No Known Allergies Allergy Verified 07/11/20 10:54 Review of Systems ROS Statement: Those systems with pertinent positive or pertinent negative responses have been documented in the HPI. ROS Other: All systems not noted in ROS Statement are negative. Past Medical History Past Medical History: No Reported History Additional Past Medical History / Comment(s): pt hospitalized in Jan for ETOH abuse and Suicidal ideation History of Any Multi-Drug Resistant Organisms: None Reported Past Surgical History: Adenoidectomy Past Anesthesia/Blood Transfusion Reactions: No Reported Reaction Past Psychological History: Anxiety, Depression Smoking Status: Never smoker Past Alcohol Use History: Abuse, Daily, Heavy Past Drug Use History: None Reported - Past Family History Father Family Medical History: Cancer Additional Family Medical History / Comment(s): from lung cancer Mother Family Medical History: Thyroid Disorder Additional Family Medical History / Comment(s): Autoimmune liver cirrhosis General Exam - General Exam Comments Initial Comments: GENERAL: Patient is well-developed and well-nourished. Patient is nontoxic and well- hydrated and is in mild distress. ENT: Neck is soft and supple. No significant lymphadenopathy is noted. Oropharynx is clear. Moist mucous membranes. Neck has full range of motion without eliciting any pain. EYES: The sclera were anicteric and conjunctiva were pink and moist. Extraocular movements were intact and pupils were equal round and reactive to light. Eyelids were unremarkable. PULMONARY: Unlabored respirations. Good breath sounds bilaterally. No audible rales rhonchi or wheezing was noted. CARDIOVASCULAR: Patient is tachycardic at about 120 beats a minute ABDOMEN: Soft and nontender with normal bowel sounds. SKIN: Skin is clear with no lesions or rashes and otherwise unremarkable. NEUROLOGIC: Patient is alert and oriented x3. Cranial nerves II through XII are grossly intact. Motor and sensory are also intact. Normal speech, volume and content. Symmetrical smile. MUSCULOSKELETAL: Normal extremities with adequate strength and full range of motion. No lower extremity swelling or edema. No calf tenderness. LYMPHATICS: No significant lymphadenopathy is noted PSYCHIATRIC: Normal psychiatric evaluation. Limitations: no limitations Course Vital Signs 07/11/20 07/11/20 07/11/20 10:51 12:09 12:51 Temperature 97.9 F Pulse Rate 136 H 121 H 105 H Respiratory 20 16 18 Rate Blood Pressure 139/93 121/98 122/91 O2 Sat by Pulse 99 98 100 Oximetry Medical Decision Making - Medical Decision Making EKG shows sinus tachycardia at 115 bpm AK interval 140 QRS is 82 QT interval 320 QTC is 442. Patient's EKG shows no ST segment elevation or depression. - Lab Data Result diagrams: 07/11/20 12:01 07/11/20 12:01 Lab Results 07/11/20 07/11/20 Range/Units 12:01 12:01 WBC 7.8 (3.8-10.6) k/uL RBC 5.12 (4.30-5.90) m/uL Hgb 17.6 H (13.0-17.5) gm/dL Hct 48.6 (39.0-53.0) % MCV 95.0 (80.0-100.0) fL MCH 34.4 (25.0-35.0) pg MCHC 36.2 (31.0-37.0) g/dL RDW 12.2 (11.5-15.5) % Plt Count 177 (150-450) k/uL MPV 7.8 Neutrophils % 79 % Lymphocytes % 12 % Monocytes % 7 % Eosinophils % 1 % Basophils % 0 % Neutrophils # 6.1 (1.3-7.7) k/uL Lymphocytes # 0.9 L (1.0-4.8) k/uL Monocytes # 0.6 (0-1.0) k/uL Eosinophils # 0.1 (0-0.7) k/uL Basophils # 0.0 (0-0.2) k/uL Sodium 138 (137-145) mmol/L Potassium 4.1 (3.5-5.1) mmol/L Chloride 94 L (98-107) mmol/L Carbon Dioxide 25 (22-30) mmol/L Anion Gap 19 mmol/L BUN 16 (9-20) mg/dL Creatinine 1.20 (0.66-1.25) mg/dL Est GFR (CKD-EPI)AfAm 90 (>60 ml/min/1.73 sqM) Est GFR (CKD-EPI)NonAf 78 (>60 ml/min/1.73 sqM) Glucose 131 H (74-99) mg/dL Calcium 12.3 H (8.4-10.2) mg/dL Magnesium 1.6 (1.6-2.3) mg/dL Total Bilirubin 2.2 H (0.2-1.3) mg/dL AST 58 (17-59) U/L ALT 49 (4-49) U/L Alkaline Phosphatase 58 (38-126) U/L Total Protein 10.0 H (6.3-8.2) g/dL Albumin 5.8 H (3.5-5.0) g/dL Serum Alcohol <10 mg/dL Disposition Clinical Impression: Alcohol abuse, Nausea Disposition: HOME SELF-CARE Condition: Good Instructions (If sedation given, give patient instructions): Abuse of Alcohol (ED) Additional Instructions: Patient is to stop drinking. Patient states Zofran every 6 hours as needed. Is patient prescribed a controlled substance at d/c from ED?: No Referrals: Francisco Javier Craven DO [Primary Care Provider] - 1-2 days Time of Disposition: 12:52
[2020-07-11 12:21] LABS: Basophils % (A) 0 %; Eosinophils # (A) 0.1 k/uL (0-0.7); Eosinophils % (A) 1 %; HCT 48.6 % (39.0-53.0); HGB 17.6 gm/dL (13.0-17.5); Lymphocytes # (A) 0.9 k/uL (1.0-4.8); Lymphocytes % (A) 12 %; MCH 34.4 pg (25.0-35.0); MCHC 36.2 g/dL (31.0-37.0); Mean Platelet Volume 7.8; Monocytes # (A) 0.6 k/uL (0-1.0); Monocytes % (A) 7 %; Neutrophils # (A) 6.1 k/uL (1.3-7.7); Neutrophils % (A) 79 %; Platelet Count 177 k/uL (150-450); RBC 5.12 m/uL (4.30-5.90); RDW 12.2 % (11.5-15.5); WBC 7.8 k/uL (3.8-10.6)
[2020-07-11 12:31] LABS: ALT 49 U/L (4-49); AST 58 U/L (17-59); African American GFR (CKD) 90 (>60 ml/min/1.73 sqM); Albumin 5.8 g/dL (3.5-5.0); Alcohol <10 mg/dL; Alkaline Phosphatase 58 U/L (38-126); Anion Gap 19 mmol/L; Blood Urea Nitrogen 16 mg/dL (9-20); Calcium 12.3 mg/dL (8.4-10.2); Carbon Dioxide 25 mmol/L (22-30); Chloride 94 mmol/L (98-107); Glucose 131 mg/dL (74-99); Magnesium 1.6 mg/dL (1.6-2.3); Non-African American GFR(CKD) 78 (>60 ml/min/1.73 sqM); Potassium 4.1 mmol/L (3.5-5.1); Sodium 138 mmol/L (137-145); Total Bilirubin 2.2 mg/dL (0.2-1.3)
[2020-07-11 12:52] VITALS: BP 122/91; PULSE 105; RESP 18
[2020-07-11] MEDS ORDERED: ONDANSETRON 4 MG ODT STARTER PACK 2 TAB BTL PO STA (12:54)
== END 2020-07-11 13:00 | disposition home or self-care (01) ==
LOC: EC 10:50
DX: F10.10 Alcohol abuse, uncomplicated (principal); F41.9 Anxiety disorder, unspecified; F32.9 Major depressive disorder, single episode, unspecified; Z79.899 Other long term (current) drug therapy; Z90.89 Acquired absence of other organs; Y90.0 Blood alcohol level of less than 20 mg/100 ml
CPT/HCPCS: 36415; 93005; 80053; 83735; 85025; 99285; 96374; 96375; 96361; G0480; J2060; J2405; S0119; 80320